=== PATIENT | female | born 1980 | race Caucasian/White ===

== ENCOUNTER 2017-09-22 15:17 | Inpatient (IN) | payer MEDICAID ==
[2017-09-22 16:03] LABS: ADD MAN DIFF? NO
[2017-09-22 16:09] LABS: WHITE BLOOD COUNT 10.1 10^3/ul (4.8-10.8)
[2017-09-22 16:09] LABS: BASOPHILS % 0.2 % (0.0-2.0); EOSINOPHILS # 0.2 10^3/ul (0.0-0.5); EOSINOPHILS % 1.8 % (0.0-7.0); HEMOGLOBIN 12.7 g/dl (12.0-16.0); LYMPHOCYTES # 2.5 10^3/ul (0.8-2.9); LYMPHOCYTES % 24.7 % (15.0-51.0); MEAN CORPUSCULAR HEMOGLOBIN 29.3 pg (29.0-33.0); MEAN CORPUSCULAR HGB CONC 33.4 g/dl (32.0-37.0); MEAN CORPUSCULAR VOLUME 87.8 fl (82.0-101.0); MEAN PLATELET VOLUME 11.9 fl (7.4-10.4); MONOCYTE # 0.5 10^3/ul (0.3-0.9); MONOCYTES % 4.4 % (0.0-11.0); NEUTROPHIL # 6.9 10^3/ul (1.6-7.5); NEUTROPHILS % 68.4 % (39.0-77.0); PLATELET COUNT 249 10^3/UL (140-415); RED BLOOD COUNT 4.33 10^6/ul (4.20-5.40); RED CELL DISTRIBUTION WIDTH 13.5 % (11.5-14.5)
[2017-09-22] MEDS: LACTATED RINGER'S 1,000 ML IV ×2 (16:26→18:01)
[2017-09-22 16:38] LABS: ADD UMIC YES; UR ASCORBIC ACID NEGATIVE (NEGATIVE); UR BACTERIA FEW /HPF (NONE SEEN); UR BILIRUBIN (Dip) NEGATIVE (NEGATIVE); UR BLOOD (Dip) NEGATIVE (NEGATIVE); UR CLARITY CLEAR (CLEAR); UR COLOR STRAW (YELLOW); UR GLUCOSE (Dip) NEGATIVE (NEGATIVE); UR KETONES (Dip) NEGATIVE (NEGATIVE); UR LEUKOCYTE ESTERASE (Dip) 2+ Leu/ul (NEGATIVE); UR NITRITE (Dip) NEGATIVE (NEGATIVE); UR RBC 1 /HPF (0-5); UR SPECIFIC GRAVITY (Dip) 1.004 (1.003-1.030); UR SQUAMOUS EPITHELIAL CELL FEW /HPF (FEW); UR TOTAL PROTEIN (Dip) NEGATIVE (NEGATIVE); UR UROBILINOGEN (Dip) NEGATIVE (NEGATIVE); UR WBC 4 /HPF (0-5)
[2017-09-22] MEDS: MAGNESIUM SULFATE 4 GM/100 ML 100 ML IV (18:04)
[2017-09-22] MEDS: BETAMET NA PHOS/AC(6 MG/ML) 5ML INJ IM (18:20)
[2017-09-22 18:27] LABS: GLUCOSE 91 mg/dl (70-220)
[2017-09-22 18:27] LABS: INR 0.83; PARTIAL THROMBOPLASTIN TIME 25.8 Sec (25.0-35.0); PROTIME 11.5 Sec (11.9-14.9); PT RATIO 0.9
[2017-09-22] MEDS: MAGNESIUM SULFATE 20 GM/500 ML 500 ML IV (18:37)
[2017-09-22] MEDS: ACETAMINOPHEN 325 MG TAB PO (20:31)
[2017-09-23 01:52] LABS: MAGNESIUM 4.8 mg/dl (1.7-2.5)
[2017-09-23] MEDS: LACTATED RINGER'S 1,000 ML IV ×3 (04:50→10:46)
[2017-09-23] MEDS: MAGNESIUM SULFATE 20 GM/500 ML 500 ML IV ×3 (05:43→14:41)
[2017-09-23 08:40] LABS: MAGNESIUM 5.2 mg/dl (1.7-2.5)
[2017-09-23] MEDS: PRENATAL VITAMIN PO (08:57)
[2017-09-23] MEDS: DOCUSATE SODIUM 100 MG CAP PO (08:57)
[2017-09-23 12:44] LABS: MAGNESIUM 5.6 mg/dl (1.7-2.5)
[2017-09-23] MEDS: BETAMET NA PHOS/AC(6 MG/ML) 5ML INJ IM (18:16)
[2017-09-23 18:36] LABS: MAGNESIUM 5.7 mg/dl (1.7-2.5)
[2017-09-23] MEDS: LACTATED RINGER'S 500 ML IV (19:47)
[2017-09-23 21:32] LABS: RAPID PLASMA REAGIN NONREACTIVE (NR)
[2017-09-24] MEDS: MAGNESIUM SULFATE 20 GM/500 ML 500 ML IV ×2 (00:32→09:09)
[2017-09-24] MEDS: LACTATED RINGER'S 1,000 ML IV ×4 (00:50→20:50)
[2017-09-24 01:30] LABS: MAGNESIUM 5.7 mg/dl (1.7-2.5)
[2017-09-24] MEDS: LACTATED RINGER'S 500 ML IV ×4 (02:54→19:38)
[2017-09-24 07:07] LABS: MAGNESIUM 6.2 mg/dl (1.7-2.5)
[2017-09-24] MEDS: DOCUSATE SODIUM 100 MG CAP PO (08:43)
[2017-09-24] MEDS: PRENATAL VITAMIN PO (08:43)
[2017-09-24 12:57] LABS: MAGNESIUM 6.1 mg/dl (1.7-2.5)
[2017-09-24] MEDS: metFORMIN 500 MG TAB PO (17:52)
[2017-09-24] MEDS ORDERED: metFORMIN 500 MG TAB GTB (18:05)
== END 2017-09-24 22:22 | disposition home or self-care (01) | DRG 778 ==
LOC: OBT 15:17 → L-D 15:20 → OBT 17:45 → L-D 17:45 → PP1 22:07
DX: O60.03 Preterm labor without delivery, third trimester (principal); O24.415 Gestational diabetes mellitus in pregnancy, controlled by oral hypoglycemic drugs; Z3A.34 34 weeks gestation of pregnancy
CPT/HCPCS: 36415; 81001; 82947; 82962; 83735; 85025; 85610; 85730; 86592; 86850; 86900; 86901; 96360

== ENCOUNTER 2017-10-17 07:37 | Inpatient (IN) | payer MEDICAID ==
[~2017-10-17 07:37] MED LIST: OXYTOCIN 10 UNIT INJ; OXYTOCIN 30 UNITS/LR 500 ML BAG IV
[2017-10-17] MEDS ORDERED: METHYLERGONOVINE 0.2 MG INJ IM ×2 (08:30→18:30)
[2017-10-17] MEDS ORDERED: MISOPROSTOL 200 MCG TAB PR ×2 (08:30→18:30)
[2017-10-17] MEDS ORDERED: OXYTOCIN 30 UNITS/LR 500 ML IV ×2 (08:30→18:30)
[2017-10-17] MEDS ORDERED: CARBOPROST 250 MCG INJ IM ×2 (08:30→18:30)
[2017-10-17] MEDS: LACTATED RINGER'S 1,000 ML IV ×3 (08:34→18:10)
[2017-10-17] MEDS ORDERED: TERBUTALINE 1 ML (09:05)
[2017-10-17] MEDS: TERBUTALINE 1 MG/ML INJ SC (09:07)
[2017-10-17 09:10] LABS: ADD MAN DIFF? NO
[2017-10-17 09:34] LABS: GLUCOSE 110 mg/dl (70-220)
[2017-10-17 09:44] LABS: INR 0.85; PROTIME 11.7 Sec (11.9-14.9); PT RATIO 0.9
[2017-10-17 09:53] LABS: PARTIAL THROMBOPLASTIN TIME 25.6 Sec (25.0-35.0)
[2017-10-17 10:04] LABS: HEPATITIS B SURFACE ANTIGEN NEGATIVE (NEGATIVE)
[2017-10-17 10:06] LABS: WHITE BLOOD COUNT 9.9 10^3/ul (4.8-10.8)
[2017-10-17 10:06] LABS: BASOPHILS % 0.3 % (0.0-2.0); EOSINOPHILS # 0.1 10^3/ul (0.0-0.5); EOSINOPHILS % 0.9 % (0.0-7.0); HEMATOCRIT 38.3 % (37.0-47.0); HEMOGLOBIN 12.6 g/dl (12.0-16.0); LYMPHOCYTES # 2.1 10^3/ul (0.8-2.9); LYMPHOCYTES % 20.6 % (15.0-51.0); MEAN CORPUSCULAR HEMOGLOBIN 28.9 pg (29.0-33.0); MEAN CORPUSCULAR HGB CONC 32.9 g/dl (32.0-37.0); MEAN CORPUSCULAR VOLUME 87.8 fl (82.0-101.0); MEAN PLATELET VOLUME 12.3 fl (7.4-10.4); MONOCYTE # 0.4 10^3/ul (0.3-0.9); MONOCYTES % 3.7 % (0.0-11.0); NEUTROPHIL # 7.4 10^3/ul (1.6-7.5); NEUTROPHILS % 74.2 % (39.0-77.0); PLATELET COUNT 250 10^3/UL (140-415); RED BLOOD COUNT 4.36 10^6/ul (4.20-5.40); RED CELL DISTRIBUTION WIDTH 14.5 % (11.5-14.5)
[2017-10-17] MEDS ORDERED: morphine SULFATE/PF (10 MG/10 ML) INJ (13:53)
[2017-10-17] MEDS ORDERED: ONDANSETRON 4 MG INJ (13:53)
[2017-10-17] MEDS ORDERED: OXYTOCIN 10 UNIT INJ (13:54)
[2017-10-17] MEDS ORDERED: PHENYLephrine (100 MCG/ML) 5ML SYG ×2 (13:54→14:59)
[2017-10-17] MEDS: OXYTOCIN 30 UNITS/LR 500 ML IV ×2 (15:10→17:43)
[2017-10-17 15:27] LABS: RAPID PLASMA REAGIN NONREACTIVE (NR)
[2017-10-17] MEDS ORDERED: NALOXONE (0.4 MG/ML) INJ IV (15:30)
[2017-10-17] MEDS ORDERED: ONDANSETRON 4 MG INJ IV (15:30)
[2017-10-17] MEDS ORDERED: DIPHENHYDRAMINE 50 MG INJ IV (15:30)
[2017-10-17] MEDS ORDERED: morphine 2 MG INJ IV (15:30)
[2017-10-17] MEDS: KETOROLAC 30 MG INJ IV ×2 (16:17→17:10)
[2017-10-17] MEDS: CEFAZOLIN 2 GM/50 ML (PMX) 50 ML IV ×2 (17:56→18:48)
[2017-10-17] MEDS ORDERED: DEXTROSE 50% 50 ML SYRINGE IV ×2 (18:30)
[2017-10-17] MEDS ORDERED: GLUCOSE GEL 15 GRAM TUBE PO ×2 (18:30)
[2017-10-17] MEDS ORDERED: GLUCOSE GEL 15 GRAM TUBE BUCCAL (18:30)
[2017-10-17] MEDS ORDERED: GLUCAGON 1 MG INJ IM (18:30)
[2017-10-17] MEDS ORDERED: NA PHOSPHATE/BIPHOS 133 ML ENEMA PR (18:30)
[2017-10-17] MEDS: ACCU-CHEK XX ×2 (19:35→20:05)
[2017-10-17] MEDS: IBUPROFEN 800 MG TAB PO (22:00)
[2017-10-17] MEDS: SENNA/DOCUSATE NA (8.6MG/50MG) TAB PO (22:07)
[2017-10-17] MEDS: metFORMIN (XR) 500 MG TAB PO (22:07)
[2017-10-18] MEDS: CLINDAMYCIN 300 MG CAP PO ×5 (00:18→23:30)
[2017-10-18] MEDS: LACTATED RINGER'S 1,000 ML IV ×3 (00:19→18:10)
[2017-10-18] MEDS: CEFAZOLIN 2 GM/50 ML (PMX) 50 ML IV ×2 (02:51→10:46)
[2017-10-18] MEDS: KETOROLAC 30 MG INJ IV ×2 (03:43→12:07)
[2017-10-18] MEDS: IBUPROFEN 800 MG TAB PO ×3 (06:00→21:41)
[2017-10-18] MEDS: SENNA/DOCUSATE NA (8.6MG/50MG) TAB PO ×2 (08:34→20:54)
[2017-10-18] MEDS: ACCU-CHEK XX ×4 (08:34→20:50)
[2017-10-18] MEDS: metFORMIN (XR) 500 MG TAB PO ×2 (08:36→20:54)
[2017-10-18] MEDS: BISACODYL 10 MG SUPP PR (10:47)
[2017-10-18 15:08] LABS: ADD MAN DIFF? NO
[2017-10-18 15:09] LABS: BASOPHILS % 0.1 % (0.0-2.0); EOSINOPHILS # 0.1 10^3/ul (0.0-0.5); EOSINOPHILS % 0.5 % (0.0-7.0); HEMATOCRIT 34.5 % (37.0-47.0); HEMOGLOBIN 11.7 g/dl (12.0-16.0); LYMPHOCYTES # 2.2 10^3/ul (0.8-2.9); MEAN CORPUSCULAR HEMOGLOBIN 29.8 pg (29.0-33.0); MEAN CORPUSCULAR HGB CONC 33.9 g/dl (32.0-37.0); MEAN PLATELET VOLUME 11.4 fl (7.4-10.4); MONOCYTE # 0.6 10^3/ul (0.3-0.9); MONOCYTES % 4.3 % (0.0-11.0); NEUTROPHIL # 10.9 10^3/ul (1.6-7.5); NEUTROPHILS % 78.8 % (39.0-77.0); PLATELET COUNT 242 10^3/UL (140-415); RED BLOOD COUNT 3.92 10^6/ul (4.20-5.40); RED CELL DISTRIBUTION WIDTH 14.5 % (11.5-14.5)
[2017-10-18 15:09] LABS: WHITE BLOOD COUNT 13.8 10^3/ul (4.8-10.8)
[2017-10-18] MEDS: OXYCODONE/ACETAMINOPHEN (5/325) TAB PO (17:43)
[2017-10-19] MEDS: IBUPROFEN 800 MG TAB PO ×3 (05:27→21:36)
[2017-10-19] MEDS: CLINDAMYCIN 300 MG CAP PO ×4 (05:27→23:20)
[2017-10-19] MEDS: ACCU-CHEK XX ×4 (07:53→20:42)
[2017-10-19] MEDS: SENNA/DOCUSATE NA (8.6MG/50MG) TAB PO ×2 (09:09→20:47)
[2017-10-19] MEDS: metFORMIN (XR) 500 MG TAB PO ×2 (09:09→20:47)
[2017-10-19] MEDS: OXYCODONE/ACETAMINOPHEN (5/325) TAB PO (12:52)
[2017-10-19 14:08] LABS: ADD MAN DIFF? NO
[2017-10-19 14:10] LABS: WHITE BLOOD COUNT 16.4 10^3/ul (4.8-10.8)
[2017-10-19 14:10] LABS: BASOPHILS % 0.2 % (0.0-2.0); EOSINOPHILS # 0.2 10^3/ul (0.0-0.5); EOSINOPHILS % 1.2 % (0.0-7.0); HEMATOCRIT 36.8 % (37.0-47.0); HEMOGLOBIN 12.4 g/dl (12.0-16.0); LYMPHOCYTES # 2.7 10^3/ul (0.8-2.9); LYMPHOCYTES % 16.4 % (15.0-51.0); MEAN CORPUSCULAR HGB CONC 33.7 g/dl (32.0-37.0); MEAN CORPUSCULAR VOLUME 88.9 fl (82.0-101.0); MEAN PLATELET VOLUME 11.6 fl (7.4-10.4); MONOCYTE # 0.7 10^3/ul (0.3-0.9); MONOCYTES % 4.1 % (0.0-11.0); NEUTROPHIL # 12.7 10^3/ul (1.6-7.5); NEUTROPHILS % 77.6 % (39.0-77.0); PLATELET COUNT 284 10^3/UL (140-415); RED BLOOD COUNT 4.14 10^6/ul (4.20-5.40); RED CELL DISTRIBUTION WIDTH 14.6 % (11.5-14.5)
[2017-10-20] MEDS: CLINDAMYCIN 300 MG CAP PO ×2 (05:35→11:48)
[2017-10-20] MEDS: IBUPROFEN 800 MG TAB PO (05:35)
[2017-10-20] MEDS: ACCU-CHEK XX (07:30)
[2017-10-20] MEDS: LANOLIN 7 GM TUBE TOP (07:44)
[2017-10-20] MEDS: SENNA/DOCUSATE NA (8.6MG/50MG) TAB PO (07:44)
[2017-10-20] MEDS: DIPHTH/TET/ACEL PERTUSS (ADULT) 0.5 ML VIAL IM* (09:00)
[2017-10-20 09:23] LABS: ADD MAN DIFF? NO
[2017-10-20 09:28] LABS: BASOPHILS % 0.3 % (0.0-2.0); EOSINOPHILS # 0.3 10^3/ul (0.0-0.5); EOSINOPHILS % 2.5 % (0.0-7.0); HEMATOCRIT 36.8 % (37.0-47.0); HEMOGLOBIN 12.2 g/dl (12.0-16.0); LYMPHOCYTES # 1.7 10^3/ul (0.8-2.9); LYMPHOCYTES % 14.4 % (15.0-51.0); MEAN CORPUSCULAR HEMOGLOBIN 29.4 pg (29.0-33.0); MEAN CORPUSCULAR HGB CONC 33.2 g/dl (32.0-37.0); MEAN CORPUSCULAR VOLUME 88.7 fl (82.0-101.0); MEAN PLATELET VOLUME 11.3 fl (7.4-10.4); MONOCYTE # 0.4 10^3/ul (0.3-0.9); MONOCYTES % 3.3 % (0.0-11.0); NEUTROPHIL # 9.3 10^3/ul (1.6-7.5); PLATELET COUNT 288 10^3/UL (140-415); RED BLOOD COUNT 4.15 10^6/ul (4.20-5.40); RED CELL DISTRIBUTION WIDTH 14.4 % (11.5-14.5)
[2017-10-20 09:28] LABS: WHITE BLOOD COUNT 11.8 10^3/ul (4.8-10.8)
[2017-10-20] MEDS: metFORMIN (XR) 500 MG TAB PO (09:50)
[2017-10-20] MEDS: HYDROCODONE/APAP (5/325) TAB PO (10:07)
== END 2017-10-20 13:45 | disposition home or self-care (01) | DRG 766 ==
LOC: OBT 07:37 → L-D 07:37 → OBT 07:53 → L-D 07:50 → PP1 17:44
PROVIDERS: Obstetrics & Gynecology
PROC: 10D00Z1 Extraction of Products of Conception, Low, Open Approach (ICD-10-PCS; principal; 2017-10-17 15:00)
PROC: 0UL70ZZ Occlusion of Bilateral Fallopian Tubes, Open Approach (ICD-10-PCS; 2017-10-17 15:00)
PROC: 3E033VJ Introduction of Other Hormone into Peripheral Vein, Percutaneous Approach (ICD-10-PCS; 2017-10-17 15:00)
DX: O34.211 Maternal care for low transverse scar from previous cesarean delivery (principal); E66.01 Morbid (severe) obesity due to excess calories; O99.214 Obesity complicating childbirth; Z68.28 Body mass index [BMI] 28.0-28.9, adult; O24.419 Gestational diabetes mellitus in pregnancy, unspecified control; Z30.2 Encounter for sterilization; Z3A.37 37 weeks gestation of pregnancy; Z37.0 Single live birth
CPT/HCPCS: 82947; 82962; 85025; 85610; 85730; 86592; 86850; 86900; 86901; 87340; 88302; 90715; 99464